=== PATIENT | male | born 1950 | race Caucasian/White ===

== ENCOUNTER 2018-05-17 10:24 | Day surgery (SDC) | payer BC, MEDICARE ==
[~2018-05-17 10:24] MED LIST: Buffered Lidocaine 0.9% SYRIN* 5 ML/SYR SYRINGE INTRADERM ONE; Famotidine IV* 10 MG/ML 2 ML (20 mg) IV ONE
[2018-05-17] MEDS ORDERED: Famotidine IV* 10 MG/ML 2 ML (20 mg) ONE (10:43)
[2018-05-17] MEDS ORDERED: Oxymetazoline 0.05% NASAL SPR* 15 ML BTL ONE (12:04)
[2018-05-17] MEDS ORDERED: Lidocain 1% EPI 1:100,000 * 30 ML MDV ONE (12:04)
[2018-05-17] MEDS ORDERED: Lidocaine 4% TOPICAL* 50 ML TOP.SOLN ONE (12:04)
[2018-05-17] MEDS ORDERED: Lidocaine 2% PF * 5 ML VIAL ONE (12:12)
[2018-05-17] MEDS ORDERED: Propofol* 10 MG/ML 20 ML BTL IV PUSH ONE (12:12)
[2018-05-17] MEDS ORDERED: fentaNYL* 50 MCG/ML 2 ML VIAL (100 MCG VIAL) ONE (12:13)
[2018-05-17] MEDS ORDERED: oxyCODONE TAB* 5 MG TAB PO PRN (12:17)
[2018-05-17] MEDS ORDERED: PROCHLORPERAZINE INJ 5 MG/ML 2 ML VIAL IV PRN (12:17)
[2018-05-17] MEDS ORDERED: Naloxone* 0.4 MG/ML 1 ML VIAL IV PRN (12:17)
[2018-05-17] MEDS ORDERED: Ketorolac INJ* 30 MG/ML 1 ML VIAL IV PRN (12:17)
[2018-05-17] MEDS ORDERED: fentaNYL* 50 MCG/ML 2 ML VIAL (100 MCG VIAL) IV PRN (12:17)
[2018-05-17] MEDS ORDERED: EPHEDrine (Pressors)* 50 MG/ML VIAL ONE (12:38)
[2018-05-17] MEDS ORDERED: Ondansetron INJ* 2 MG/ML VIAL ONE (13:00)
[2018-05-17] MEDS ORDERED: Triamcinolone Acetonide* 40 MG/ML 1 ML VIAL ONE (13:09)
[2018-05-17] MEDS ORDERED: Dexamethasone IV* 4 MG/ML 1 ML (4 MG) ONE (13:09)
[2018-05-17] MEDS ORDERED: Ketorolac INJ* 30 MG/ML 1 ML VIAL ONE (14:04)
[2018-05-17 14:48] VITALS: BP 139/78
--- NOTE | 2018-05-18 02:00 | OP ---
DATE OF OPERATION: 05/17/18 - SDS DATE OF : 54 SURGEON: Ezra Ardon MD ANESTHESIA: General laryngeal mask airway anesthesia. PRE-OP DIAGNOSIS: Chronic pansinusitis. POST-OP DIAGNOSIS: Chronic pansinusitis. OPERATIVE PROCEDURE: Bilateral functional endoscopic sinus surgery using image guidance with a bilateral maxillary antrostomy with debridement of tissue, anterior and posterior ethmoidectomy and sphenoidotomies under general laryngeal mask airway anesthesia. COMPLICATIONS: None. DISPOSITION: Good. SPECIMENS: Left and right sinus contents. DESCRIPTION OF PROCEDURE: The patient was taken to the operating room and placed in the supine position on the operating table. General anesthesia was induced, maintained with laryngeal mask airway anesthesia. Nose was packed bilaterally with cottonoids impregnated with oxymetazoline and 4% lidocaine. He was then registered to the [employer] image-guided system. Using the endoscopes and the endoscopic sinus surgery instruments, surgery was done bilaterally. His middle turbinates, uncinate process and ethmoids were injected with 1% lidocaine with 1:100,000 epinephrine. His middle turbinates were medialized. Packs were placed in the ostiomeatal unit. These were removed. The ostium of the maxillary sinuses were verified. A sickle knife was used to make a cut on the anterior uncinate process. This was taken away with the straight biter. The ostium was debrided with a combination of backbiters, debrider and true cuts. The anterior ethmoid was entered with a curette. This was opened further with curettes, straight biters and debrider. The sphenoid ostium was found and entered. It was widened with the debrider and the surgery was completed bilaterally. The Redaptberger Sinu-Foam was mixed with water and Kenalog and placed bilaterally. The patient tolerated it well, no complications , and transferred to the recovery room in stable condition. [id number]/[facility] #: [id number] SHIRA
== END 2018-05-17 14:54 | disposition home or self-care (01) ==
LOC: OR 10:24
PROVIDERS: ATTEND Otolaryngology
DX: J32.4 Chronic pansinusitis (principal); E11.9 Type 2 diabetes mellitus without complications; Z79.84 Long term (current) use of oral hypoglycemic drugs; E78.5 Hyperlipidemia, unspecified; M10.9 Gout, unspecified; E78.00 Pure hypercholesterolemia, unspecified
CPT/HCPCS: 88305; A9270-GY; J1100; J1885; J2405; J2704; J3010; J3301